=== PATIENT | female | born 1960 | race Caucasian/White ===

== ENCOUNTER → 2023-06-21 10:06 | Outpatient (REF) | payer OTHER, SELFPAY | LOC: DHCBC HW 10:06 | PROVIDERS: ATTENDING PHYSICIAN Internal Medicine Cardiovascular Disease; FAMILY PHYSICIAN Family Medicine | DX: R06.02 Shortness of breath (principal) | CPT/HCPCS: 93306 ==

== ENCOUNTER → 2023-06-22 12:02 | Outpatient (REF) | payer OTHER, SELFPAY | LOC: DHCBC/DCA 12:02 | PROVIDERS: ATTENDING PHYSICIAN Internal Medicine Cardiovascular Disease; FAMILY PHYSICIAN Family Medicine | DX: R06.02 Shortness of breath (principal) | CPT/HCPCS: 78452; 93017; A9500; J2785 ==

== ENCOUNTER 2024-05-23 10:27 | Emergency (ER) | payer OTHER, SELFPAY ==
[2024-05-23 10:35] VITALS: BP 144/94
[2024-05-23 12:31] VITALS: BP 125/82
[2024-05-23 13:43] LABS: % Basophils 0.3 % (0-2); % Immature Granulocytes 0.3 % (0-0.5); % Lymphocytes 28.6 % (20.5-51.1); % Monocytes 6.3 % (1.7-9.3); % Neutrophils 63.5 % (42.2-75.2); Absolute Eosinophils 0.1 10^3/uL (0-0.7); Absolute Monocytes 0.4 10^3/uL (0.1-0.6); Absolute Neutrophils 4.5 10^3/uL (1.4-6.5); Hematocrit 44.1 % (37.0-47.0); Hemoglobin 14.7 g/dL (12.0-16.0); Mean Corp Hgb Conc. 33.3 g/dL (33.0-37.0); Mean Corpuscular Hgb 28.8 pg (27.0-31.0); Mean Corpuscular Volume 86.5 fL (81.0-99.0); Mean Platelet Volume 10.5 fL (7.4-10.4); Nucleated Red Blood Cells % 0 %; Platelet Count 270 10^3/uL (130-400); Red Cell Dist. Width 13.2 % (11.5-14.5)
[2024-05-23 13:44] VITALS: BP 124/84; BMI 28.9
--- NOTE | 2024-05-23 13:46 | ED.GENMED ---
History of Present Illness
General
Chief Complaint: Heart Rate Problem
Source: patient
Time Seen by Provider: 05/23/24 13:32
History of Present Illness
History of Present Illness:
63-year-old female with past medical history of paroxysmal atrial fibrillation status postcardiac ablation presents to the emergency department after she felt as if she went into a A-fib last night with symptoms including lightheadedness and some
exertional dyspnea. Patient states that her heart rate was around the 130 to 140 bpm. Came to the ER this morning because symptoms did not dissipate. At time of my examination patient states all of her symptoms have resolved and while in the
waiting room she was brought back in for a second EKG and was back into a normal sinus rhythm. Patient reports she is normally not on Eliquis however take a dose of this last night. She reports that she is compliant with her daily metoprolol 25
mg. Social history noncontributory. Patient does report that she may have had a little bit of a viral illness within the last 2 weeks
Past History
Past History
ED Past Medical History: Arrthythmia (Atrial fib), Asthma (exercise induced) and Other (Migraines)
ED Past Surgical History: Cardiac and Orthopedic (Esteban. Knee replacements., Bunion right foot, Right hand ganglion cyst removed)
Patient has exhibited threatening behavior?: No
PSI?: No
Social History
Tobacco: Non-smoker
Alcohol: Occasional
Drug: None
Personal:
Living: with family
Employment: Employed (Teacher)
Family History
Family History: Other (Noncontributory)
Review of Systems
Review of Systems
All Other Systems: ROS reviewed and negative except as documented in HPI and ROS
Phy Exam
Physical Exam
Physical Exam:
GENERAL: Alert , in no apparent distress
EYE: conjunctiva clear
NECK: Supple
ENT: o/p clr, mmm.
CARDIAC: Regular rate and rhythm
LUNGS: Clear breath sounds bilaterally, no acute respiratory distress, no wheezes/rales/rhonchi
NEUROLOGICAL: Alert and oriented
SKIN: Warm and dry, skin intact.
MUSCULOSKELETAL: well perfused.
PSYCH: Normal and appropriate interaction.
Scores
[id number] Score for Afib Stroke Risk
Age in Years (65=0, 65-74=1, >/=75=2): <65
Sex (Female=+1): Female
Congestive Heart Failure History (Yes=+1): No
Hypertension History (Yes=+1): No
Stroke/TIA/Thromboembolism History (Yes=+2): No
Vascular Disease History (Yes=+1): No
Diabetes Mellitus (Yes=+1): No
Score: 1
Anticoagulation Recommendations: Consider anticoagulation (as validated in nonvalvular fib)
Heart Failure Risk
Heart Failure Risk Score: Not Applicable
Heart Score for Chest Pain Patients
STEMI patient?: Not applicable
Withdrawal Assessment of Alcohol
Withdrawal Assessment Completed?: Not applicable
Course
Orders/Labs/Results
Orders:
Orders
05/23/24 10:37
Electrocardiogram (*1) Urgent
Reason for Study: Atrial Fibrillation
EKG- Treatment ONCE
05/23/24 12:32
Electrocardiogram (*1) Urgent
Reason for Study: Other
Other Reason for Exam: change to NSR
EKG- Treatment ONCE
05/23/24 13:22
Complete Blood Count/With Diff Urgent
Comprehensive Metabolic Panel Urgent
TSH Reflex To Free T4 Urgent
Abnormal Lab Results
05/23/24
13:22
MPV 10.5 H fL
(7.4-10.4)
Glucose 113 H mg/dl
(70-99)
Calcium 10.5 H mg/dl
(8.4-10.2)
Total Protein 8.4 H g/dl
(6.3-8.2)
Albumin 5.2 H g/dl
(3.5-5.0)
05/23/24 13:22
05/23/24 13:22
Vital Signs
Initial and Last Documented VS:
Initial Vital Signs
Temp Pulse Resp BP Pulse Ox
98.4 F 132 18 144/94 97
05/23/24 10:35 05/23/24 10:35 05/23/24 10:35 05/23/24 10:35 05/23/24 10:35
Last Documented Vital Signs
Temp Pulse Resp BP Pulse Ox
98.4 F 70 29 124/84 96
05/23/24 10:35 05/23/24 13:45 05/23/24 13:45 05/23/24 13:44 05/23/24 13:45
MDM/Problems Addressed
Differential Diagnosis Includes:
Paroxysmal A-fib, no symptoms to suggest ACS, no signs to suggest CHF
MDM/Problems Addressed:
63-year-old female presenting to the emergency department for evaluation after she felt she went in to A-fib last night, presented to the ER today and had an initial EKG done which confirmed A-fib however while in the waiting room went back into a
normal sinus rhythm. Patient remains in a normal sinus rhythm at time of my exam. Will check labs. Anticipate need for just outpatient follow-up with cardiology. Will discuss with cardiology to see if they would like us to increase patient's
metoprolol dose.
Chronic conditions affecting care: Arrhythmia
Acute Exacerbation and/or Progression of Chronic Illness: Arrhythmia
*Pulse Oximetry
Patient hypoxic: no
*EKG
Heart Rate: 130
Rhythm: atrial flutter
Marcell: left axis deviation
QRS Pattern: left bundle branch block
*Seam Feller Interpretation
Rate: normal
Rhythm: sinus
*Critical Care Note
Total Time (30-74mins, 75-104mins- exclusive of procedures): Not Applicable
Data Reviewed
Review of Other/Old Records Reveals: Labs and Records
Source: patient and records
Patient Management
Escalation/DeEscalation of care consider admission/obs:
Cardiology notified. They would be okay with us increasing patient's metoprolol from 25 mg once daily to twice daily as long as blood pressure and heart rate would be able to tolerate. Will discuss with patient. Anticipate outpatient follow-up.
Patient remains hemodynamically stable. Her blood pressures remain around 120/80. Hesitant to increase metoprolol at this time. Patient to follow-up with cardiology. She will continue taking the metoprolol once daily however if she starts to
experience palpitations or elevated heart rate again I did instruct her that it would be okay to take a second dose. Patient expressed understanding. Aware of return precautions. She will take the Eliquis daily until advised by cardiology to
discontinue.
ED Attending Note
-
Portions of this chart may have been created with voice recognition software.� Occasional wrong word or��sound alike� substitutions may have occurred due to the inherent limitations of voice recognition software.
Discharge Plan
Departure
Patient Disposition: Home (Routine Discharge)
Date of Disposition: 05/23/24
Time of Disposition: 14:03
Patient with high blood pressure during this ER visit?: Yes
Discharge Problem:
Paroxysmal atrial fibrillation
Instructions: Atrial Fibrillation (DC), Chest Pain CBC Follow Up
Prescriptions:
New
Eliquis 5 mg tablet
5 mg PO BID Qty: 60 0RF
No Action
metoprolol succinate [Toprol XL] 25 mg tablet extended release 24 hr
25 mg PO DAILY Qty: 20 1RF
zolmitriptan [Zomig] 2.5 mg [place],Non-Aerosol
2.5 mg INTRANASAL Q2H PRN (Reason: migraine)
Eliquis 5 mg tablet
5 mg PO BID Qty: 10 0RF
omeprazole 20 mg Tablet,Delayed Release (Dr/Ec)
20 mg PO DAILY
colchicine 0.6 mg tablet
0.3 mg PO TID 7 Days Qty: 11 0RF
Referrals:
Jarred Maldonado MD [Active] -
Interventions
Interventions:
*Risk Screen - Suicide Last Done: 05/23/24 10:35
*General Assessment Last Done: 05/23/24 10:35
*Neglect/Abuse Screening Last Done: 05/23/24 10:35
ED- Fall Risk Assessment Last Done: 05/23/24 13:44
*ED COVID-19 Vaccine History Last Done: 05/23/24 13:44
*Nursing Disposition Last Done: 05/23/24 14:23
ED- Cardiac Assessment Last Done: 05/23/24 13:44
ED- Pulmonary Assessment Last Done: 05/23/24 13:44
Discharge Date and Time
Discharge Date/Time: 05/23/24 14:26
Print Language: CYMRO
[2024-05-23 13:58] LABS: ALT (SGPT) 31 U/L (0-35); AST (SGOT) 30 U/L (14-36); Albumin 5.2 g/dl (3.5-5.0); Alkaline Phosphatase 123 U/L (38-126); Blood Urea Nitrogen 17 mg/dl (7-17); Calcium 10.5 mg/dl (8.4-10.2); Carbon Dioxide 26 mmol/L (22-30); Chloride 103 mmol/L (98-107); Estimated Creatinine Clearance 83 ml/min; Glucose 113 mg/dl (70-99); Potassium 4.8 mmol/L (3.5-5.1); Sodium 141 mmol/L (135-145); Total Bilirubin 0.9 mg/dl (0.2-1.3); Total Protein 8.4 g/dl (6.3-8.2); eGFR > 60.00
[2024-05-23 14:26] LABS: TSH Reflex To Free T4 2.68 uIU/ml (0.47-4.68)
== END 2024-05-23 14:26 | disposition home or self-care (01) ==
LOC: EMR 10:27
PROVIDERS: Student in an Organized Health Care Education/Training Program; EMERGENCY PHYSICIAN Emergency Medicine; FAMILY PHYSICIAN Family Medicine
DX: I48.0 Paroxysmal atrial fibrillation (principal); R03.0 Elevated blood-pressure reading, without diagnosis of hypertension
CPT/HCPCS: 99284; 80053; 84443; 85025; 93005